=== PATIENT | female | born 1950 | race Caucasian/White ===

== ENCOUNTER 2019-11-27 15:16 | Outpatient (CLI) | payer MEDICARE, OTHER, SELFPAY ==
[2019-11-27 16:35] LABS: Alanine Aminotransferase 20 U/L (4-35); Albumin Level 4.3 g/dL (3.5-5.1); Alkaline Phosphatase 118 U/L (38-126); Aspartate Amino Transferase 22 U/L (14-36); Bilirubin,Total 0.4 mg/dL (0.2-1.3); Blood Urea Nitrogen 19 mg/dL (7-17); Calcium 9.5 mg/dL (8.4-10.2); Carbon Dioxide 27 mmol/L (22-30); Chloride 101 mmol/L (98-107); Cholesterol 207 mg/dL (0-200); Estimated Glomerular Filt Rate > 60; Glucose 113 mg/dL (65-105); HDL Direct 71 mg/dL; Potassium 3.8 mmol/L (3.4-5.0); Sodium 143 mmol/L (137-145); Triglycerides 144 mg/dL (<150)
[2019-11-27 16:46] LABS: MALB Creatinine Ratio 6.1 mg/g (0-30); Microalbumin Urine Random 12.6 mg/L (0-16.7)
[2019-11-27 16:46] LABS: LDL Cholesterol Direct 103 mg/dL
[2019-11-27 17:38] LABS: Hemoglobin A1C 6.4 % (<5.7)
== END 2019-11-27 15:17 | disposition home or self-care (01) ==
LOC: ANHLAB 15:23
PROVIDERS: PCP Emergency Medicine; Visit Provider Emergency Medicine
DX: E78.2 Mixed hyperlipidemia (principal); E11.9 Type 2 diabetes mellitus without complications
CPT/HCPCS: 36415; 80053; 80061; 82043; 83036

== ENCOUNTER 2021-08-13 12:56 | Outpatient (CLI) | payer MEDICARE, OTHER, SELFPAY ==
[2021-08-13 13:30] VITALS: PULSE 92; O2SAT 94
[2021-08-13 13:35] VITALS: PULSE 138; O2SAT 87
[2021-08-13 13:36] VITALS: O2SAT 87
[2021-08-13 13:37] VITALS: O2SAT 90
[2021-08-13 13:45] VITALS: PULSE 96; O2SAT 94
--- NOTE | 2021-08-13 15:09 | HOMEO2EVAL ---
Evaluation was performed at [facility] Home Oxygen Evaluation RC: Home Oxygen (O2) Evaluation Start: 08/13/21 15:06 Freq: Status: Active Protocol: RPE Activity Type Activity Date Activity User E-Sign Co-Sign Detail Recorded Client Recorded Date Recorded By Document 08/13/21 13:30 DAVID [email or web address] 08/13/21 15:09 DAVID Document 08/13/21 13:35 DAVID [email or web address] 08/13/21 15:09 DAVID Document 08/13/21 13:36 DAVID [email or web address] 08/13/21 15:09 DAVID Document 08/13/21 13:37 DAVID [email or web address] 08/13/21 15:09 DAVID Document 08/13/21 13:45 DAVID [email or web address] 08/13/21 15:09 DAVID 08/13/21 08/13/21 08/13/21 13:30 13:35 13:36 Home O2 Evaluation Test Phase Resting Exercise Exercise Oxygen Delivery Room Air Room Air Nasal Cannula Oxygen Flow Rate (L/min) 1 Pulse Oximetry (90-100 %) 94 87 L 87 L Pulse Rate (60-100 beats/min) 92 138 H Home Oxygen Evaluation Comments Treatment Charges O2 Evaluation - Outpatient 08/13/21 08/13/21 13:37 13:45 Home O2 Evaluation Test Phase Exercise Resting Oxygen Delivery Nasal Cannula Room Air Oxygen Flow Rate (L/min) 2 Pulse Oximetry (90-100 %) 90 94 Pulse Rate (60-100 beats/min) 96 Home Oxygen Evaluation Comments Home o2 needs are 2 L with activity Treatment Charges
== END 2021-08-13 12:57 | disposition home or self-care (01) ==
LOC: ANHPFT 12:57
PROVIDERS: PCP Emergency Medicine; Visit Provider Nurse Practitioner Family
DX: R09.02 Hypoxemia (principal)
CPT/HCPCS: 36415; 80053; 80061; 83036; 94618

== ENCOUNTER 2021-08-13 13:01 | Outpatient (CLI) | payer MEDICARE, OTHER, SELFPAY ==
[2021-08-13 13:49] LABS: LDL Cholesterol Direct 126 mg/dL
[2021-08-13 15:06] LABS: Alanine Aminotransferase 23 U/L (4-35); Albumin Level 4.5 g/dL (3.5-5.1); Alkaline Phosphatase 100 U/L (38-126); Anion Gap 7 mmol/L (8-16); Aspartate Amino Transferase 26 U/L (14-36); Bilirubin,Total 0.5 mg/dL (0.2-1.3); Blood Urea Nitrogen 18 mg/dL (7-17); Calcium 9.7 mg/dL (8.4-10.2); Carbon Dioxide 29 mmol/L (22-30); Chloride 99 mmol/L (98-107); Cholesterol 233 mg/dL (0-200); Estimated Glomerular Filt Rate > 60; Glucose 116 mg/dL (65-110); HDL Direct 75 mg/dL; Potassium 4.2 mmol/L (3.4-5.0); Sodium 135 mmol/L (137-145); Triglycerides 158 mg/dL (<150)
[2021-08-13 15:07] LABS: Hemoglobin A1C 6.2 % (<5.7)
== END 2021-08-13 13:02 | disposition home or self-care (01) ==
PROVIDERS: PCP Emergency Medicine; Visit Provider Emergency Medicine
DX: E78.5 Hyperlipidemia, unspecified (principal); I10 Essential (primary) hypertension; E11.9 Type 2 diabetes mellitus without complications
CPT/HCPCS: 36415; 80053; 80061; 83036

== ENCOUNTER 2021-11-17 13:24 | Outpatient (CLI) | payer MEDICARE, OTHER, SELFPAY ==
--- NOTE | ~2021-11-17 | CT_ITS ---
EXAMINATION: CT lung screening DATE: 11/17/2021 13:47 INDICATION: Personal history of nicotine dependence TECHNIQUE: Computed tomography (CT) of the chest was performed without intravenous contrast. The dose -length product was 509.70 mGy-cm. Automated exposure control and iterative reconstruction technique were employed. COMPARISON: Chest dated 08/17/2010 FINDINGS: No thoracic lymph node enlargement. Severe chronic elevation of the right diaphragm, consis tent with diaphragmatic paralysis. Chronic right basilar atelectasis. No thoracic lymphadenopathy. No evidence for aortic aneurysm. Ther e are cholecystectomy clips in the upper abdomen. No significant pleural or pericardial effusion. No thoracic lymphadenopathy. No endobronchial lesions. No suspicious pulmonary nodules or masses. Mild t horacic spondylosis. 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 IMPRESSION: 1. Lung-RADS category 1: Negative. Continue annual screening with noncontrast low-dose chest CT in 12 months. Reviewed, dictated and finalized at location B. RATIVE ENGRAVER APPRENTICE IMPRESSION: 1. Lung-RADS category 1: Negative. Continue annual screening with noncontrast l ow-dose chest CT in 12 months.
== END 2021-11-17 13:25 | disposition home or self-care (01) ==
LOC: ANHIMG 13:29
PROVIDERS: PCP Emergency Medicine; Visit Provider Physician Assistant
DX: Z87.891 Personal history of nicotine dependence (principal)
CPT/HCPCS: 71271

== ENCOUNTER 2022-06-07 13:57 | Outpatient (CLI) | payer MEDICARE, OTHER, SELFPAY ==
[2022-06-07 14:54] LABS: Hemoglobin A1C 5.9 % (<5.7)
[2022-06-07 14:56] LABS: Alanine Aminotransferase 20 U/L (6-35); Albumin Level 4.5 g/dL (3.5-5.1); Alkaline Phosphatase 127 U/L (38-126); Anion Gap 10 mmol/L (8-16); Aspartate Amino Transferase 21 U/L (14-36); Bilirubin,Total 0.4 mg/dL (0.2-1.3); Blood Urea Nitrogen 22 mg/dL (7-17); Calcium 9.7 mg/dL (8.4-10.2); Carbon Dioxide 27 mmol/L (22-30); Chloride 102 mmol/L (98-107); Cholesterol 223 mg/dL (0-200); Estimated Glomerular Filt Rate > 60; Glucose 131 mg/dL (65-110); HDL Direct 72 mg/dL; Sodium 139 mmol/L (137-145); Triglycerides 131 mg/dL (<150)
[2022-06-07 14:59] LABS: Iron 87 ug/dL (37-170)
[2022-06-07 15:07] LABS: LDL Cholesterol Direct 92 mg/dL
[2022-06-07 15:11] LABS: Percent Iron Saturation 26 % (20-50)
[2022-06-07 15:18] LABS: Creatinine Urine 102.3 mg/dL
[2022-06-07 15:21] LABS: MALB Creatinine Ratio 6.3 mg/g (0-30); Microalbumin Urine Random 6.4 mg/L (0-16.7)
== END 2022-06-07 13:58 | disposition home or self-care (01) ==
PROVIDERS: PCP Emergency Medicine; Visit Provider Emergency Medicine
DX: R53.83 Other fatigue (principal); E11.9 Type 2 diabetes mellitus without complications; E78.2 Mixed hyperlipidemia; I10 Essential (primary) hypertension
CPT/HCPCS: 36415; 80053; 80061; 82043; 83036; 83540; 83550

== ENCOUNTER 2022-11-18 15:12 | Outpatient (CLI) | payer MEDICARE, SELFPAY ==
--- NOTE | ~2022-11-18 | CT_ITS ---
EXAMINATION: CT lung screening DATE: 11/18/2022 15:37 INDICATION: Lung cancer screening. TECHNIQUE: Computed tomography (CT) of the chest was performed without intravenous contrast. The dose -length product was 456.47 mGy-cm. Automated exposure control and iterative reconstruction technique were employed. COMPARISON: CT dated 11/17/2021 FINDINGS: No significant pleural or pericardial effusion. Chronic elevation of the right diaphragm. H eart size normal. There are cholecystectomy clips. No thoracic lymphadenopathy. There is atelectasis of the right lung base. No endobronchial lesions. No suspicious pulmonary nodules or masses. Mild tho racic spondylosis with accentuated kyphosis. Hemangioma of T7 unchanged. IMPRESSION: 1. Lung-RADS category 1: Negative. Continue annual screening with noncontrast low-dose chest CT in 12 months. Reviewed, dictated and finalized at location B. LE COORDINATOR IMPRESSION: 1. Lung-RADS category 1: Negative. Continue annual screening with noncontrast l ow-dose chest CT in 12 months.
== END 2022-11-18 15:13 | disposition home or self-care (01) ==
LOC: ANHIMG 15:13
PROVIDERS: PCP Emergency Medicine; Visit Provider Physician Assistant
DX: Z12.2 Encounter for screening for malignant neoplasm of respiratory organs (principal); Z87.891 Personal history of nicotine dependence
CPT/HCPCS: 71271

== ENCOUNTER → 2023-02-06 13:31 | Outpatient (CLI) | payer MEDICARE, SELFPAY ==
--- NOTE | ~2023-02-06 | DEXA_ITS ---
Bone Density Report Name: KIRIT ACOSTA Age: 72 Sex: Female Ethnicity: White Date of : 1950 Indication: postmenopausal; screening for osteoporosis; height loss; prior fracture; asthma or emphysema; hysterectomy; Referring Provider: MELISA HDEZ Study: Bone densitometry was performed. Exam Date: February 06, 2023 Accession number: [id number] Bone Density: Region BMD T-score Z-score Classification AP Spine (L1-L4) 1.079 0.3 2.7 Normal Femoral Neck (Left) 0.857 0.1 2.1 Normal Total Hip (Left) 0.943 0.0 1.8 Normal Femoral Neck (Right) 0.780 -0.6 1.4 Normal Total Hip (Right) 0.854 -0.7 1.0 Normal Total Hip Mean 0.899 -0.4 1.4 Normal World Health Organization criteria for BMD impression classify patients as: Normal (T-score at or above -1.0), Osteopenia (T-score between -1.0 and -2.5), or Osteoporosis (T-score at or below -2.5). 10-year Fracture Risk: FRAX not reported because: All T-scores for Spine Total, Hip Total, Femoral Neck at or above -1.0 Previous Exams: Region Exam Age BMD T-score BMD Change BMD Change Date g/cm2 vs Baseline vs Previous AP Spine(L1-L4) 02/06/2023 72 1.079 0.3 0.020 0.007 02/25/2017 66 1.073 0.2 0.014 0.014 10/03/2008 58 1.059 0.1 Total Hip(Left) 02/06/2023 72 0.943 0.0 -0.170* -0.062* 02/25/2017 66 1.005 0.5 -0.108* -0.108* 10/03/2008 58 1.113 1.4 Total Hip(Right) 02/06/2023 72 0.854 -0.7 -0.129* -0.086* 02/25/2017 66 0.940 0.0 -0.043* -0.043* 10/03/2008 58 0.983 0.3 *Denotes significance at 95% confidence level, LSC for AP Spine = 0.022 g/cm2, LSC for Total Hip = 0.027 g/cm2 Clinical Information Provided by Patient: Has had a low trauma fracture Has the following medical conditions: Asthma or Emphysema, Hysterectomy Patient maximum height was 64 Menopause Age: 50 No regular weight bearing exercise Onset of menses at age 10 Number of children 2 Impression: The patient has normal bone mass. The patient has risk factors, including: previous fracture. The BMD for the Total Hip(Left) decreased, changing by -0.062 since the last DXA exam. The BMD for the Total Hip(Right) decreased, changing by -0.086 since the last DXA exam. Discussion: BONE DENSITY IS ABOVE THE MINIMUM DESIRABLE LEVEL AT ALL SKELETAL SITES TESTED. This patient?s bone mineral density is above t
--- NOTE | ~2023-02-06 | MM_ITS ---
EXAMINATION: MM screening [facility] BI w flavio HISTORY: Screening mammogram, family history of breast cancer in her mother. TECHNIQUE: Craniocaudal and mediolateral oblique 3-D tomosynthesis images were obtained and synthetic 2-D images were generated. CAD analysis was submitted and interpreted. COMPARISON: 02/25/2017 BREAST PARENCHYMAL COMPOSITION:The breasts are almost entirely fatty FINDINGS: No suspicious mass, calcification, or architectural distortion are identified in either fallon ast to suggest malignancy. There has been no suspicious interval change. IMPRESSION: No mammographic evidence of malignancy. Recommend routine screening mammography in one year. BI-RADS Category 1: Negative Reviewed, dictated and finalized at location .
== END ==
PROVIDERS: PCP Emergency Medicine; Visit Provider Emergency Medicine
DX: Z12.31 Encounter for screening mammogram for malignant neoplasm of breast (principal); Z78.0 Asymptomatic menopausal state
CPT/HCPCS: 77063; 77067; 77080

== ENCOUNTER 2023-02-17 13:52 | Outpatient (CLI) | payer MEDICARE, SELFPAY ==
[2023-02-17 15:49] LABS: Creatinine Urine 59.9 mg/dL
[2023-02-17 15:50] LABS: Alanine Aminotransferase 20 U/L (6-35); Albumin Level 4.5 g/dL (3.5-5.1); Alkaline Phosphatase 126 U/L (38-126); Anion Gap 8 mmol/L (8-16); Aspartate Amino Transferase 22 U/L (14-36); Bilirubin,Total 0.5 mg/dL (0.2-1.3); Blood Urea Nitrogen 20 mg/dL (7-17); Calcium 9.3 mg/dL (8.4-10.2); Carbon Dioxide 29 mmol/L (22-30); Chloride 100 mmol/L (98-107); Cholesterol 210 mg/dL (0-200); Estimated Glomerular Filt Rate > 60; Glucose 126 mg/dL (65-110); HDL Direct 75 mg/dL; Potassium 3.9 mmol/L (3.4-5.0); Sodium 137 mmol/L (137-145); Triglycerides 119 mg/dL (<150)
[2023-02-17 16:02] LABS: LDL Cholesterol Direct 104 mg/dL
[2023-02-17 16:07] LABS: Microalbumin Urine Random < 6.0 mg/L (0-16.7)
[2023-02-17 16:08] LABS: MALB Creatinine Ratio < 10.0 mg/g (0-30)
[2023-02-17 19:43] LABS: Hemoglobin A1C 6.1 % (<5.7)
== END 2023-02-17 13:53 | disposition home or self-care (01) ==
PROVIDERS: PCP Emergency Medicine; Visit Provider Emergency Medicine
DX: E78.2 Mixed hyperlipidemia (principal); E11.9 Type 2 diabetes mellitus without complications; R53.83 Other fatigue
CPT/HCPCS: 36415; 80053; 80061; 82043; 83036

== ENCOUNTER 2023-04-20 16:08 | Outpatient (CLI) | payer MEDICARE, SELFPAY ==
[2023-04-20 17:06] LABS: Alanine Aminotransferase 26 U/L (6-35); Albumin Level 4.7 g/dL (3.5-5.1); Alkaline Phosphatase 122 U/L (38-126); Anion Gap 14 mmol/L (8-16); Aspartate Amino Transferase 28 U/L (14-36); Bilirubin,Total 0.4 mg/dL (0.2-1.3); Blood Urea Nitrogen 19 mg/dL (7-17); Calcium 9.9 mg/dL (8.4-10.2); Carbon Dioxide 28 mmol/L (22-30); Chloride 100 mmol/L (98-107); Cholesterol 224 mg/dL (0-200); Estimated Glomerular Filt Rate > 60; Glucose 101 mg/dL (65-110); HDL Direct 74 mg/dL; Potassium 3.4 mmol/L (3.4-5.0); Sodium 142 mmol/L (137-145); Triglycerides 148 mg/dL (<150)
[2023-04-20 17:17] LABS: LDL Cholesterol Direct 94 mg/dL
[2023-04-20 17:18] LABS: Hemoglobin A1C 6.1 % (<5.7)
[2023-04-20 17:21] LABS: Appearance Urine Clear (Clear); Bilirubin Urine Negative (Negative); Blood Urine Negative (Negative); Color Urine Yellow (Yellow); Glucose Urine UA Negative (Negative); Ketones Urine Negative (Negative); Leukocyte Esterase Ur Negative LEU/UL (Negative); Nitrate Urine Negative (Negative); Protein Urine Negative (Negative); Specific Grav Ur 1.004 (1.001-1.035); Urobilinogen Urine 0.2 mg/dL (<2.0)
[2023-04-20 17:24] LABS: Add Urine Microscopic? NO
[2023-04-20 18:03] LABS: Iron 72 ug/dL (37-170)
[2023-04-25 00:03] LABS: Zinc 82 mcg/dL (60-130)
[2023-04-25 17:23] LABS: Vitamin D 1,25 (OH)2 Total 57 pg/mL (18-72); Vitamin D2 1,25 (OH)2 <8 pg/mL; Vitamin D3 1,25 (OH)2 57 pg/mL
== END 2023-04-20 16:09 | disposition home or self-care (01) ==
PROVIDERS: PCP Emergency Medicine; Visit Provider Emergency Medicine
DX: E55.9 Vitamin D deficiency, unspecified (principal); R53.83 Other fatigue; E11.9 Type 2 diabetes mellitus without complications; E78.5 Hyperlipidemia, unspecified; N19 Unspecified kidney failure
CPT/HCPCS: 36415; 80053; 80061; 81003; 82652; 83036; 83540; 84443; 84630

== ENCOUNTER 2023-11-20 13:52 | Outpatient (CLI) | payer MEDICARE, SELFPAY ==
--- NOTE | ~2023-11-20 | CT_ITS ---
CT Scan of the Chest without Contrast: Clinical Indication: Lung cancer screening, personal history of nicotine dependence Technique: Contiguous sections were acquired throughout the chest without intravenous contrast. Dose reduction technique was used on this scan by utilizing automated exposure control and iterative recon struction technique. The dose-length product (DLP) was 333.59 mGy-cm. COMPARISON: 11/18/2022 Findings: There is no evidence of any significant mediastinal, hilar or axillary lymphadenopathy. The mediastin al soft tissues appear normal. There is no evidence of pleural or pericardial effusion. The lungs are clear. No pulmonary nodules or infiltrates are noted. Images through the upper abdomen reveal no abnormalities. Impression: Lung RADS 1: Negative. 12 month follow-up screening CT advised. Reviewed, dictated and finalized at location . A MARKETING COORDINATOR Impression: Lung RADS 1: Negative. 12 month follow-up screening CT advised.
== END 2023-11-20 13:53 | disposition home or self-care (01) ==
PROVIDERS: PCP Emergency Medicine; Visit Provider Nurse Practitioner Family
DX: Z12.2 Encounter for screening for malignant neoplasm of respiratory organs (principal); Z87.891 Personal history of nicotine dependence
CPT/HCPCS: 71271

== ENCOUNTER 2023-11-27 14:59 | Outpatient (CLI) | payer MEDICARE, SELFPAY ==
--- NOTE | ~2023-11-27 | XR_ITS ---
EXAMINATION: XR lumbar spine 2-3V DATE: 11/27/2023 15:19 INDICATION: Low back pain, unspecified. TECHNIQUE: 3 views of lumbar spine were obtained. COMPARISON: None. FINDINGS: There is 3 mm anterolisthesis of L4 on L5. There is mild chronic anterior wedging of T12 ve rtebral body. There is mildly decreased disc height at L2-L3, L3-L4, and L4-L5 and moderately decreas ed disc height at L5-S1. There is multilevel severe facet joint osteoarthritis in lumbar spine. There are bridging endplate osteophytes at multiple levels in thoracic spine, consistent with diffuse idio pathic skeletal hyperostosis (DISH). 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 There are surgical clips in the abdomen. IMPRESSION: 1. Moderate lumbar spondylosis. 2. Thoracic DISH. Reviewed, dictated and finalized at location E. [facility]
--- NOTE | ~2023-11-27 | XR_ITS ---
EXAM: XR_KNEE1-2VRT_CR, XR_KNEE1-2VLT_CR DATE: 11/27/2023 15:19 HISTORY: M25.569 - Pain in unspecified knee . COMPARISON: None available. FINDINGS: Decreased mineralization. No fracture or dislocation. No lytic or blastic lesion. Severe l eft medial joint space and moderate right lateral joint space narrowing. Moderate tricompartmental os teophytosis in the right knee. Moderate-severe osteophytosis in the left knee. No erosion or perioste al change. Small bilateral knee joint effusions. IMPRESSION: Osteopenia. Severe left and moderate right knee osteoarthritis. Reviewed, dictated and finalized at location K. NT ACQUISITION CONSULTANT IMPRESSION: Osteopenia. Severe left and moderate right knee osteoarthritis.
--- NOTE | ~2023-11-27 | XR_ITS ---
EXAMINATION: XR hip BI 2V w AP pelvis DATE: 11/27/2023 15:19 INDICATION: Right hip pain. TECHNIQUE: An anteroposterior view of the pelvis and 2 views of right hip were obtained. COMPARISON: None. FINDINGS: Bone alignment is normal. No fracture. There is mild osteoarthritis of the hips. There is s evere lumbar spondylosis. IMPRESSION: 1. Mild osteoarthritis of the hips. Reviewed, dictated and finalized at location E. IGERATION INSULATOR
== END 2023-11-27 15:00 | disposition home or self-care (01) ==
LOC: ANHIMG 15:00
PROVIDERS: PCP Emergency Medicine; Visit Provider Emergency Medicine
DX: M16.0 Bilateral primary osteoarthritis of hip (principal); M47.896 Other spondylosis, lumbar region; M85.861 Other specified disorders of bone density and structure, right lower leg; M85.862 Other specified disorders of bone density and structure, left lower leg; M17.0 Bilateral primary osteoarthritis of knee
CPT/HCPCS: 72100; 73521; 73560

== ENCOUNTER 2023-12-13 13:01 | Outpatient (CLI) | payer MEDICARE, SELFPAY ==
[2023-12-13 14:23] LABS: Alanine Aminotransferase 15 U/L (6-35); Albumin Level 4.4 g/dL (3.5-5.1); Alkaline Phosphatase 112 U/L (38-126); Anion Gap 8 mmol/L (8-16); Aspartate Amino Transferase 21 U/L (14-36); Bilirubin,Total 0.6 mg/dL (0.2-1.3); Blood Urea Nitrogen 29 mg/dL (7-17); Calcium 9.8 mg/dL (8.4-10.2); Carbon Dioxide 28 mmol/L (22-30); Chloride 104 mmol/L (98-107); Cholesterol 190 mg/dL (0-200); Estimated Glomerular Filt Rate > 60; Glucose 106 mg/dL (65-110); HDL Direct 66 mg/dL; Potassium 3.9 mmol/L (3.4-5.0); Sodium 140 mmol/L (137-145); Triglycerides 94 mg/dL (<150)
[2023-12-13 14:34] LABS: LDL Cholesterol Direct 94 mg/dL
[2023-12-13 14:40] LABS: Vitamin D 25 Hydroxy 53.7 ng/mL
[2023-12-15 13:02] LABS: Zinc 76 mcg/dL (60-130)
[2023-12-15 13:37] LABS: Hemoglobin A1C 5.8 % (<5.7)
== END 2023-12-13 13:02 | disposition home or self-care (01) ==
PROVIDERS: PCP Emergency Medicine; Visit Provider Emergency Medicine
DX: E78.5 Hyperlipidemia, unspecified (principal); E55.9 Vitamin D deficiency, unspecified; E11.9 Type 2 diabetes mellitus without complications; K50.918 Crohn's disease, unspecified, with other complication
CPT/HCPCS: 36415; 80053; 80061; 82306; 83036; 84630

== ENCOUNTER 2024-05-30 09:05 | Outpatient (CLI) | payer MEDICARE, SELFPAY ==
[2024-05-30 09:57] LABS: Alanine Aminotransferase 14 U/L (6-35); Albumin Level 4.3 g/dL (3.5-5.1); Alkaline Phosphatase 109 U/L (38-126); Anion Gap 8 mmol/L (4-12); Aspartate Amino Transferase 20 U/L (14-36); Bilirubin,Total 0.3 mg/dL (0.2-1.3); Blood Urea Nitrogen 40 mg/dL (7-17); Calcium 9.5 mg/dL (8.4-10.2); Carbon Dioxide 31 mmol/L (22-30); Chloride 98 mmol/L (98-107); Cholesterol 186 mg/dL (0-200); Estimated Glomerular Filt Rate > 60; Glucose 103 mg/dL (65-110); HDL Direct 82 mg/dL; Potassium 3.9 mmol/L (3.4-5.0); Sodium 137 mmol/L (137-145); Triglycerides 70 mg/dL (<150)
[2024-05-30 10:08] LABS: LDL Cholesterol Direct 76 mg/dL
[2024-05-30 10:13] LABS: Creatinine Urine 90.6 mg/dL
[2024-05-30 10:26] LABS: Vitamin D 25 Hydroxy 28.7 ng/mL
[2024-05-30 10:38] LABS: Hemoglobin A1C 5.8 % (<5.7)
[2024-05-30 10:48] LABS: MALB Creatinine Ratio < 6.6 mg/g (0-30); Microalbumin Urine Random < 6.0 mg/L (0-16.7)
== END 2024-05-30 09:06 | disposition home or self-care (01) ==
LOC: ANHLAB 09:12
PROVIDERS: PCP Emergency Medicine; Visit Provider Emergency Medicine
DX: E78.2 Mixed hyperlipidemia (principal); E11.9 Type 2 diabetes mellitus without complications; E55.9 Vitamin D deficiency, unspecified
CPT/HCPCS: 36415; 80053; 80061; 82043; 82306; 83036

== ENCOUNTER 2024-06-21 12:47 | Outpatient (CLI) | payer MEDICARE, SELFPAY ==
--- NOTE | ~2024-06-21 | MM_ITS ---
EXAMINATION: MM screening [facility] BI w flavio HISTORY: Screening TECHNIQUE: Craniocaudal and mediolateral oblique 3-D tomosynthesis images were obtained and synthetic 2-D images were generated. CAD analysis was submitted and interpreted. COMPARISON: Comparison to multiple prior studies sequentially, with oldest reviewed study dated 02/25. BREAST PARENCHYMAL COMPOSITION: Not Dense. The breasts are almost entirely fatty. FINDINGS: There is no evidence of suspicious mass, calcification, or architectural distortion to sugg est malignancy in either breast. There has been no suspicious interval change. IMPRESSION: 1. No mammographic evidence of malignancy. 2. Recommend routine screening mammography in one year. BI-RADS Category 1: Negative Reviewed, dictated and finalized at location B.
== END 2024-06-21 12:48 | disposition home or self-care (01) ==
LOC: MICIMG 12:48
PROVIDERS: PCP Emergency Medicine; Visit Provider Emergency Medicine
DX: Z12.31 Encounter for screening mammogram for malignant neoplasm of breast (principal)
CPT/HCPCS: 77063; 77067

== ENCOUNTER 2024-07-18 14:49 | Outpatient (CLI) | payer MEDICARE, SELFPAY ==
[2024-07-18 15:29] LABS: Basophils Absolute Auto 0.1 K/mm3 (0.0-0.1); Basophils Percent Auto 0.8 % (0.2-1.2); Eosinophils Absolute Auto 0.1 K/mm3 (0-0.3); Eosinophils Percent Auto 1.8 % (0-4.4); Hematocrit 38.6 % (37.0-47.0); Hemoglobin 12.5 g/dL (12.0-15.0); Immature Granulocyte Absolute 0.02 K/mm3 (0.00-0.031); Immature Granulocyte Percent A 0.3 % (0-0.5); Lymphocytes Percent Auto 32.3 % (18.3-44.2); Mean Corpuscular HGB Conc 32.4 g/dl (32-36); Mean Corpuscular Hemoglobin 29.5 pg (26-34); Mean Platelet Volume 11.2 fl (7.4-10.4); Monocytes Absolute Auto 0.3 K/mm3 (0.1-0.6); Monocytes Percent Auto 5.2 % (2.6-8.5); Neutrophils Absolute Auto 3.9 K/mm3 (1.3-6.7); Neutrophils Percent Auto 59.6 % (45.5-73.1); Platelet Count Result 152 k/mm3 (150-375); Red Blood Count 4.24 M/mm3 (4.2-5.4); Red Cell Distribution Width 13.5 % (11.5-14.5); White Blood Count 6.5 K/mm3 (4.5-10.0)
== END 2024-07-18 14:50 | disposition home or self-care (01) ==
LOC: ANHLAB 14:52
PROVIDERS: PCP Emergency Medicine; Visit Provider Nurse Practitioner Family
DX: R53.83 Other fatigue (principal)
CPT/HCPCS: 36415; 85025

== ENCOUNTER 2025-01-03 13:12 | Outpatient (CLI) | payer MEDICARE, SELFPAY ==
--- OUTSIDE RECORDS SUMMARY | 2025-01-03 13:19 | XMS_ITS | Clinical Summary ---
Author Organization [facility] Address [address] [place] [address] Care Team Providers Care Emt P Name Role Phone Unavailable Primary Care Provider Unavailabl e Source Comments [facility] [employer],non-owned Affiliates and Associated Physician Practices is amultiple site organization consisting of ambulatory clinics and hospital sitesin [place], [place], [place] and [place]. This disclosure is being madepursuant to the Care Everywhere program and may not contain all information available regarding this patient. Last updated 18.[facility] [employer] Social History Tobacco Use Types Packs/Day Years Used Date Smoking Tobacco: Never Assessed Sex and Gender Information Value Date Recorded Sex Assigned at Not on file Gender Identity Not on file Sexual Orientation Not on file Plan of Treatment Health Maintenance Due Date Last Done Comments BONE DENSITY TESTING 1950 HEPATITIS C SCREENING 07/21/1966 DTAP/TDAP/TD VACCINES (1 - Tdap) 1967 PNEUMOCOCCAL VACCINE 50+ (1 of 1 - PCV) 1998 ZOSTER VACCINE (1 of 2) 1998 Respiratory Syncytial Virus (RSV) Vaccine Pt: or over 60 yrs (1 - 1-dose 75+ series) 2023 COVID-19 VACCINE ( - 2023-2 5 season) 2024 DEPRESSION SCREENING 09/25/2024 INFLUENZA VACCINE (Season Ended) 2025 HEPATITIS B VACCINE Aged Out No longe r eligible based on patient's age to complete this topic HIB VACCINE Aged Out No longer eligi ble based on patient's age to complete this topic HPV VACCINE Aged Out No longer eligi ble based on patient's age to complete this topic MENINGOCOCCAL (Group B) VACC INE SHARED DECISION-MAKING Aged Out No longer eligibl e based on patient's age to complete this topic MENINGOCOCCAL GROUPS A/C/Y/W VACCINE Aged Out No longer eligible b ased on patient's age to complete this topic
--- OUTSIDE RECORDS SUMMARY | 2025-01-03 13:19 | XMS_ITS | Continuity of Care Document ---
Author Organization [facility] Address [address] [place] [address] Phone Care Team Providers Care Comedian Name Role Phone Ruth DEAL, Gordy Unavailable Unavaila ble Medications Medication Instructions Dosage Effective Dates (start - stop) Status Comments ketorolac 0.4 % eye drops instill 1 drop by ophthalmic route 4 times every day starting after surgery and continuing for 4 weeks after surgery 1 drop - Active ofloxacin 0.3 % eye drops apply 1 Drop by Ophthalmic route 4 times every day starting after surgery and continue for 1 week. 1 Drop - Active Pred Forte 1 % eye drops,suspension instill 1 drop by Ophthalmic route 4 times every day for one month after surgery. 1 drop - Active Procedures Procedure Date CATARACT SURG W/IOL, 1 STAGE CATARACT SURG W/IOL, 1 STAGE OPHTHALMIC BIOMETRY RT OFFICE/OUTPATIENT VISIT, [facility] ADMINISTRATION FEE Advance Directives Directive Yes / No Effective Date File Name No Information Encounters Encounter Description Practice Location Reason(s) For Visit Diagnoses Date Provider Providers Copied on Encounter [facility], [address], [place], [place], [id number], [place] tel:[phone] [facility] No Information 7 Ruth Kaminski. [address] , [address], [place], [place], [id number], [place]. tel:[phone] Referring Provider: Gordy jones, [address], [place], [address] . tel:[phone] [facility], [address] [place] [address], [id number], tel:[phone] [facility] No Information 7 Rohitmaryannfranklinmartin Godry. [address], [address], [place], [address], [place]. tel:[phone] Referring Provider: Gordy North robert, [address], [place], [address] . tel:[phone] [facility], [address] [place] [address], [id number], tel:[phone] [facility] No Information 7 Ruth Gordy. [address], [address], [place], [address], [place]. tel:[phone] Referring Provider: Gordy jones, [address], [place], [address] . tel:[phone] OFFICE/OUTPA TIENT VISIT, [facility], [address] [place] [address], [id number], tel:[phone] [facility] [place] No Information 7 Gueronasamy Gordy. [address], [address], [place], [address], [place]. tel:[phone] Referring Provider: Gordy jones, [address], [place], [address] . tel:[phone] Family History Family Member Type Diagnosis Age At Onset No Information Payers Payer name Insurance type Covered alliance party ID Authoriza tianne marie(s) [facility] [id number] Medicare SECONDARY MB [id number] Social History Type Description Quantity Date Captured Comments Sex Female Smoking Status No Information Chief Complaint And Reason For Visit No Information Reason For Referral Reason For Referral No Information History Of Present Illness Encounter Date Complaint History Of Prese nt Illness No Information Functional Status Date Functional Assessmen t No Information Instructions Date Instruction Additional Infor mation No Information Assessments Type Assessment Date No Information Patient Care Teams Name Effective Dates (start - stop) Status Members No Information
[2025-01-03 14:04] LABS: Alanine Aminotransferase 16 U/L (6-35); Albumin Level 4.7 g/dL (3.5-5.1); Alkaline Phosphatase 125 U/L (38-126); Anion Gap 7 mmol/L (4-12); Aspartate Amino Transferase 21 U/L (14-36); Bilirubin,Total 0.5 mg/dL (0.2-1.3); Blood Urea Nitrogen 34 mg/dL (7-17); Calcium 9.5 mg/dL (8.4-10.2); Carbon Dioxide 32 mmol/L (22-30); Chloride 99 mmol/L (98-107); Cholesterol 187 mg/dL (0-200); Estimated Glomerular Filt Rate > 60; Glucose 97 mg/dL (65-110); HDL Direct 81 mg/dL; Hemoglobin A1C 5.5 % (<5.7); Potassium 3.6 mmol/L (3.4-5.0); Sodium 138 mmol/L (137-145); Triglycerides 89 mg/dL (<150)
[2025-01-03 14:08] LABS: Creatinine Urine 75.3 mg/dL
[2025-01-03 14:14] LABS: MALB Creatinine Ratio 8.1 mg/g (0-30); Microalbumin Urine Random 6.1 mg/L (0-16.7)
[2025-01-03 14:15] LABS: LDL Cholesterol Direct 72 mg/dL
[2025-01-03 14:28] LABS: Vitamin D 25 Hydroxy 35.5 ng/mL
== END 2025-01-03 13:13 | disposition home or self-care (01) ==
PROVIDERS: PCP Emergency Medicine; Visit Provider Emergency Medicine
DX: E11.9 Type 2 diabetes mellitus without complications (principal); E55.9 Vitamin D deficiency, unspecified; E78.2 Mixed hyperlipidemia
CPT/HCPCS: 36415; 80053; 80061; 82043; 82306; 83036

== ENCOUNTER 2025-03-20 14:20 | Outpatient (CLI) | payer MEDICARE, SELFPAY ==
--- NOTE | ~2025-03-20 | DEXA_ITS ---
Bone Density Report Name: KIRIT ACOSTA Age: 74 Sex: Female Ethnicity: White Date of : 1950 Indication: postmenopausal; screening for osteoporosis; asthma or emphysema; hysterectomy; Referring Provider: MELISA HDEZ Study: Bone densitometry was performed. Exam Date: March 20, 2025 Accession number: [id number] Bone Density: Region BMD T-score Z-score Classification AP Spine(L1-L4) 1.106 0.5 3.0 Normal Femoral Neck (Left) 0.663 -1.7 0.5 Osteopenia Total Hip (Left) 0.885 -0.5 1.4 Normal Femoral Neck (Right) 0.766 -0.7 1.4 Normal Total Hip (Right) 0.864 -0.6 1.2 Normal Total Hip Mean 0.875 -0.6 1.3 Normal World Health Organization criteria for BMD impression classify patients as: Normal (T-score at or above -1.0), Osteopenia (T-score between -1.0 and -2.5), or Osteoporosis (T-score at or below -2.5). 10-year Fracture Risk(1): Major Osteoporotic Fracture 11% Hip Fracture 2.4% Reported Risk Factors: [place] (), Neck BMD=0.663, BMI=37.7 (1) FRAX(R) Version 3.08. Fracture probability calculated for an untreated patient. Fracture probability may be lower if the patient has received treatment. Previous Exams: -- Region Exam Age BMD T-score BMD Change BMD Change Date g/cm2 vs Baseline vs Previous -- AP Spine (L1-L4) 03/20/2025 74 1.106 0.5 4.4%# 2.5%# 02/06/2023 72 1.079 0.3 1.9% 0.6% 02/25/2017 66 1.073 0.2 1.3% 1.3% 10/03/2008 58 1.059 0.1 Total Hip(Left) 03/20/2025 74 0.885 -0.5 -20.5%# -6.1%# 02/06/2023 72 0.943 0.0 -15.3%* -6.2%* 02/25/2017 66 1.005 0.5 -9.7%* -9.7%* 10/03/2008 58 1.113 1.4 Total Hip(Right) 03/20/2025 74 0.864 -0.6 -12.0%# 1.2%# 02/06/2023 72 0.854 -0.7 -13.1%* -9.2%* 02/25/2017 66 0.940 0.0 -4.3%* -4.3%* 10/03/2008 58 0.983 0.3 -- *Denotes significance at 95% confidence level, LSC for AP Spine = 0.022 g/cm2, LSC for Total Hip = 0.027 g/cm2 # Denotes dissimilar scan types or analysis methods Clinical Information Provided by Patient: Has used the following medications: Vitamin D Has the following medical conditions: Asthma or Emphysema, Hysterectomy Patient maximum height was 64 Menopause Age: 50 No regular weight bearing exercise Drinks caffeinated beverages Onset of menses at age 10 Number of children 2 Impression: The patient has low bone mass, based on the Left Femoral Neck T-score. The patient has an estimated ten-year risk of hip fracture of 2.4% and an estimated ten-year risk of major fracture of 11%, based on the WHO FRAX algorithm. Unable to evaluate interval change due to the use of different scan modes. Discussion: BONE DENSITY IS LOW AT ONE OR MORE SKELETAL SITES. This patient's lowest T-score is low at one or more skeletal sites. It meets the World Health Organization's (WHO) criteria for ?low bone mass? (T-score between -1.0 and -2.5). The patient's 10-year risk of fracture as calculated by FRAX is less than the threshold where pharmacological therapy is recommended by the National Osteoporosis Foundation (NOF). However, all treatment decisions require clinical judgment and consideration of individual patient factors, including patient preferences, comorbidities, previous drug use, risk factors not captured in the FRAX model (e.g., frailty, falls, vitamin D deficiency, increased bone turnover, interval significant decline in bone density) and possible under or overestimation of fracture risk by FRAX. The patient should follow a healthful lifestyle (good nutrition with adequate calcium and vitamin D, and appropriate weight-bearing exercise). Follow-Up: Consider repeating this study in 2 to 3 years to reassess this patient's status, or sooner if there is some new clinical indication. Reported by: NATHALY on 03/20/2025 2:45:00 PM. Reviewed, dictated and finalized at location A.
== END 2025-03-20 14:21 | disposition home or self-care (01) ==
LOC: MICIMG 14:20
PROVIDERS: PCP Emergency Medicine; Visit Provider Emergency Medicine
DX: M85.852 Other specified disorders of bone density and structure, left thigh (principal); Z78.0 Asymptomatic menopausal state
CPT/HCPCS: 77080

== ENCOUNTER 2025-08-07 11:19 | Outpatient (CLI) | payer MEDICARE, SELFPAY ==
[2025-08-07 12:07] LABS: Alanine Aminotransferase 16 U/L (6-35); Albumin Level 4.7 g/dL (3.5-5.1); Alkaline Phosphatase 102 U/L (38-126); Anion Gap 7 mmol/L (4-12); Aspartate Amino Transferase 25 U/L (14-36); Bilirubin,Total 0.5 mg/dL (0.2-1.3); Blood Urea Nitrogen 45 mg/dL (7-17); Calcium 9.9 mg/dL (8.4-10.2); Carbon Dioxide 32 mmol/L (22-30); Chloride 99 mmol/L (98-107); Cholesterol 214 mg/dL (0-200); Estimated Glomerular Filt Rate > 60; Glucose 99 mg/dL (65-110); HDL Direct 77 mg/dL; Potassium 4.3 mmol/L (3.4-5.0); Sodium 138 mmol/L (137-145); Total Protein 7.4 g/dL (6.3-8.2); Triglycerides 110 mg/dL (<150)
[2025-08-07 12:24] LABS: MALB Creatinine Ratio 9.0 mg/g (0-30)
--- OUTSIDE RECORDS SUMMARY | 2025-08-07 12:28 | XMS_ITS | Clinical Summary ---
Author Organization [facility] Address [address] [place] [address] Care Team Providers Care Intensive Care Unit Registered Nurse Name Role Phone Unavailable Primary Care Provider Unavailabl e Source Comments [facility] [employer],non-owned Affiliates and Associated Physician Practices is amultiple site organization consisting of ambulatory clinics and hospital sitesin [place], [place], [place] and [place]. This disclosure is being madepursuant to the Care Everywhere program and may not contain all information available regarding this patient. Last updated 18.[facility] [employer] Social History Tobacco Use Types Packs/Day Years Used Date Smoking Tobacco: Never Assessed Comments Unknown Sex and Gender Information Value Date Recorded Sex Assigned at Not on file Legal Sex Female 7:12 AM FOURTH HAND Gender Identity Not on file Sexual Orientation [...] yrs (1 - 1-dose 75+ series) 2023 DEPRESSION SCREENING 09/25/2024 COVID-19 VACCINE ( - 2023-2 5 season) 2025 INFLUENZA VACCINE (#1) 2025 HEPATITIS B VACCINE Aged Out No [...]
[2025-08-07 15:55] LABS: Hemoglobin A1C 5.5 % (<5.7)
== END 2025-08-07 11:20 | disposition home or self-care (01) ==
LOC: ANHLAB 11:20
PROVIDERS: PCP Emergency Medicine; Visit Provider Emergency Medicine
DX: E78.5 Hyperlipidemia, unspecified (principal); E11.9 Type 2 diabetes mellitus without complications; E55.9 Vitamin D deficiency, unspecified
CPT/HCPCS: 36415; 80053; 80061; 82043; 82306; 83036

== ENCOUNTER 2025-08-19 12:10 | Outpatient (CLI) | payer MEDICARE, SELFPAY ==
[2025-08-19 12:39] LABS: Hematocrit 40.1 % (37.0-47.0); Hemoglobin 12.8 g/dL (12.0-15.0); Immature Granulocyte Percent A 0.3 % (0-0.5); Lymphocytes Absolute Auto 2.13 K/mm3 (0.9-3.2); Mean Corpuscular HGB Conc 31.9 g/dl (32-36); Mean Corpuscular Hemoglobin 28.9 pg (26-34); Mean Corpuscular Volume 90.5 fl (80-100); Nucleated Red Blood Cells Absolute Auto 0.000 K/mm3 (0.0-0.012); Nucleated Red Blood Cells Perc 0.0 % (0.0-0.2); Platelet Count Result 160 k/mm3 (150-375); Red Blood Count 4.43 M/mm3 (4.2-5.4); White Blood Count 7.0 K/mm3 (4.5-10.0)
--- OUTSIDE RECORDS SUMMARY | 2025-08-19 13:44 | XMS_ITS | Clinical Summary ---
Author Organization [facility] Address [address] [place] [address] Care Team Providers Care Care Partner Name Role Phone Unavailable Primary Care Provider Unavailabl e Source Comments [facility] [employer],non-owned Affiliates and Associated Physician Practices is amultiple site organization consisting of ambulatory clinics and hospital sitesin [place], [place], [place] and [place]. This disclosure is being madepursuant to the Care Everywhere program and may not contain all information available regarding this patient. Last updated 18.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
[2025-08-19 13:46] LABS: Magnesium 2.1 mg/dL (1.6-2.3); Thyroid Stimulating Hormone 1.490 uIU/mL (0.465-4.680)
== END 2025-08-19 12:11 | disposition home or self-care (01) ==
LOC: ANHLAB 12:13
PROVIDERS: PCP Emergency Medicine; Visit Provider Emergency Medicine
DX: E61.2 Magnesium deficiency (principal); I10 Essential (primary) hypertension; R53.83 Other fatigue
CPT/HCPCS: 36415; 83735; 84443; 85025